=== PATIENT | female | born 1995 | race Caucasian/White ===

== ENCOUNTER 2023-12-31 20:57 | Emergency (ER) | payer OTHER ==
[~2023-12-31] VITALS: Ht 165.1 cm; Wt 86.2 kg
[2023-12-31 21:15] VITALS: BP_SYST 137; PULSE 77; RESP 18; TEMP 99; O2SAT 100
[2023-12-31 22:19] LABS: BILIRUBIN,URINE NEGATIVE (NEGATIVE); BLOOD, URINE NEGATIVE (NEGATIVE); CLARITY/URINE CLEAR (CLEAR); COLOR,URINE YELLOW (YELLOW); GLUCOSE,URINE NEGATIVE (NEGATIVE); KETONES,URINE NEGATIVE (NEGATIVE); LEUKOCYTE ESTERASE ,URINE NEGATIVE (NEGATIVE); NITRITE, URINE NEGATIVE (NEGATIVE); PROTEIN URINE NEGATIVE (NEGATIVE); UROBILINOGEN,URINE 0.2 (0.2-1.0)
[2023-12-31] MEDS ORDERED: ONDA-8 TL (22:33)
[2023-12-31] MEDS ORDERED: CIPR500T5 PO (22:33)
[2023-12-31] MEDS: ONDANSETRON 4 MG ODT TAB PO ONE (22:38)
[2023-12-31 22:44] VITALS: BP_SYST 137; PULSE 77; RESP 18; TEMP 99; O2SAT 100
== END 2023-12-31 22:45 | disposition home or self-care (01) ==
LOC: SED 20:57
DX: R11.10 Vomiting, unspecified (principal); R19.7 Diarrhea, unspecified; Z79.899 Other long term (current) drug therapy; Z79.2 Long term (current) use of antibiotics
CPT/HCPCS: 99283; 81001; 81025; Q0162; 81003

== ENCOUNTER 2024-01-01 21:39 | Emergency (ER) | payer OTHER ==
[~2024-01-01] VITALS: Ht 165.1 cm; Wt 86.2 kg
[~2024-01-01 21:39] MED LIST: CIPR500T5 PO; ONDA-8 TL
[2024-01-01 22:08] VITALS: BP_SYST 117; PULSE 60; RESP 17; TEMP 98.4; O2SAT 100
[2024-01-01 23:34] LABS: BILIRUBIN,URINE NEGATIVE (NEGATIVE); BLOOD, URINE NEGATIVE (NEGATIVE); CLARITY/URINE CLEAR (CLEAR); COLOR,URINE YELLOW (YELLOW); GLUCOSE,URINE NEGATIVE (NEGATIVE); KETONES,URINE TRACE (NEGATIVE); LEUKOCYTE ESTERASE ,URINE NEGATIVE (NEGATIVE); NITRITE, URINE NEGATIVE (NEGATIVE); PH,URINE 5.5 (5.0-8.0); PROTEIN URINE NEGATIVE (NEGATIVE); UROBILINOGEN,URINE 0.2 (0.2-1.0)
[2024-01-01 23:37] LABS: BASOPHILS # (AUTO) 0.1 K/uL (0.0-0.2); BASOPHILS % (AUTO) 1.1 % (0.0-2.0); EOSINOPHILS # (AUTO) 0.2 K/uL (0.0-0.4); HEMOGLOBIN 11.2 g/dL (12.0-16.0); LYMPHOCYTES # (AUTO) 3.2 K/uL (1.0-5.5); LYMPHOCYTES % (AUTO) 26.3 % (20.5-51.5); MEAN CORPUSCULAR HEMOGLOBIN 21 pg (27-31); MEAN CORPUSCULAR HGB CONC 32 % (32-36); MEAN CORPUSCULAR VOLUME 65 fL (79.0-98.0); MONOCYTES # (AUTO) 0.8 K/uL (0.0-1.0); MONOCYTES % (AUTO) 6.7 % (1.7-9.3); NEUTROPHILS # (AUTO) 7.9 K/uL (1.8-7.7); NEUTROPHILS % (AUTO) 63.9 % (40.0-70.0); PLATELET COUNT (AUTO) 365 K/uL (130-430); RED BLOOD CELL COUNT(AUTO) 5.38 MIL/uL (4.2-6.2); RED CELL DISTRIBUTION WIDTH 16.3 % (9.0-15.0); WHITE BLOOD COUNT (AUTO) 12.3 K/uL (4.8-10.8)
[2024-01-01 23:43] LABS: HCG,QUAL RESULT NEGATIVE (NEGATIVE)
[2024-01-01] MEDS: NACL 0.9% 1,000 ML IV ONE (23:45)
[2024-01-01] MEDS: KETOROLAC TROMETHAMINE 30 MG VIAL IVP ONE (23:47)
[2024-01-01] MEDS: ONDANSETRON HCL 4 MG/2 ML VIAL IVP ONE (23:47)
[2024-01-02 00:08] LABS: ALBUMIN 3.9 g/dL (3.4-4.8); BILIRUBIN,DIRECT 0.1 mg/dL (0.0-0.3); CALCIUM 9.2 mg/dL (8.4-11.0); CREATININE 0.99 mg/dL (0.55-1.30); POTASSIUM 4.1 mmol/L (3.5-5.1); TOTAL BILIRUBIN 0.5 mg/dL (0.0-1.0); TOTAL PROTEIN, SERUM 8.4 g/dL (6.4-8.3)
[2024-01-02] MEDS: NACL 0.9% 1,000 ML IV ONE (01:06)
[2024-01-02] MEDS ORDERED: IBUP-1969 PO (01:13)
[2024-01-02] MEDS ORDERED: ONDA-8 TL (01:13)
[2024-01-02 01:30] VITALS: BP_SYST 141; PULSE 65; RESP 20; TEMP 97.1; O2SAT 98
== END 2024-01-02 01:30 | disposition home or self-care (01) ==
LOC: SED 21:39
DX: R10.13 Epigastric pain (principal); R10.12 Left upper quadrant pain; R11.10 Vomiting, unspecified; Z79.899 Other long term (current) drug therapy; Z79.2 Long term (current) use of antibiotics
CPT/HCPCS: 99285; 74176; 96374; 96361; 96375; 80076; 80048; 81001; 84703; 83690; 85025; 36415; 81025; J1885; J2405; J7030 ×2; 81003